=== PATIENT | female | born 1985 | race Two or more races ===

== ENCOUNTER 2023-05-01 21:26 | Emergency (ER) | payer SELFPAY ==
[~2023-05-01] VITALS: Ht 160 cm; Wt 88.6 kg
[2023-05-01 21:30] VITALS: RESP 16
[2023-05-01 23:25] VITALS: BP 154/90; PULSE 104; TEMP 98.4; O2SAT 95
[2023-05-01] MEDS ORDERED: AUG875T PO (23:29)
[2023-05-01] MEDS ORDERED: TETANUS-DIPTH-ACEL PERTUSSIS 0.5ML SYR Tdap IM ONE (23:30)
== END 2023-05-02 00:02 | disposition home or self-care (01) ==
LOC: ER 21:26
DX: S61.212A Laceration without foreign body of right middle finger without damage to nail, initial encounter (principal); W54.0XXA Bitten by dog, initial encounter; Y93.89 Activity, other specified; Y92.89 Other specified places as the place of occurrence of the external cause; Y99.8 Other external cause status
CPT/HCPCS: 12001; 90471; 90715

== ENCOUNTER 2023-05-08 18:33 | Emergency (ER) | payer SELFPAY ==
[~2023-05-08] VITALS: Ht 160 cm; Wt 89.6 kg
[~2023-05-08 18:33] MED LIST: AUG875T PO
[2023-05-08 18:56] VITALS: BP 125/83; PULSE 95; RESP 18; TEMP 97.2; O2SAT 98
[2023-05-08] MEDS ORDERED: MUPI2OIN2 EX (19:04)
== END 2023-05-08 19:13 | disposition home or self-care (01) ==
LOC: ER 18:33
DX: S61.213D Laceration without foreign body of left middle finger without damage to nail, subsequent encounter (principal); Z48.00 Encounter for change or removal of nonsurgical wound dressing; Z79.899 Other long term (current) drug therapy; W54.0XXD Bitten by dog, subsequent encounter